=== PATIENT | male | born 1960 | race Hispanic/Latino ===

== ENCOUNTER 2018-03-20 18:20 | Emergency (ER) | payer OTHER ==
[2018-03-20] MEDS ORDERED: BACLOFEN 10 MG TABLET PO ONE (19:32)
[2018-03-20] MEDS ORDERED: KETOROLAC TROMETHAMINE 15MG/ML ONE (19:33)
== END 2018-03-20 21:57 | disposition home or self-care (01) ==
LOC: EDH 18:20
DX: S16.1XXA Strain of muscle, fascia and tendon at neck level, initial encounter (principal); M54.6 Pain in thoracic spine; M54.5 Low back pain; V59.49XA Driver of pick-up truck or van injured in collision with other motor vehicles in traffic accident, initial encounter; Y93.89 Activity, other specified; Y92.89 Other specified places as the place of occurrence of the external cause; Y99.8 Other external cause status
CPT/HCPCS: 72050; 72072; 72100; 73030; 96374; 99284; J1885

== ENCOUNTER 2019-06-03 10:48 | Emergency (ER) | payer OTHER ==
[2019-06-03] MEDS ORDERED: NAPROXEN 500 MG TABLET ONE (11:04)
== END 2019-06-03 11:18 | disposition home or self-care (01) ==
LOC: EDH 10:48
DX: S83.8X2A Sprain of other specified parts of left knee, initial encounter (principal); S39.012A Strain of muscle, fascia and tendon of lower back, initial encounter; V49.49XA Driver injured in collision with other motor vehicles in traffic accident, initial encounter; Y93.89 Activity, other specified; Y92.89 Other specified places as the place of occurrence of the external cause; Y99.8 Other external cause status